=== PATIENT | male | born 2000 | race Caucasian/White ===

== ENCOUNTER 2019-03-30 04:45 | Emergency (ER) | payer BC ==
[2019-03-30] MEDS ORDERED: Ondansetron INJ* 2 MG/ML VIAL IV ONE (05:43)
[2019-03-30] MEDS ORDERED: Morphine 4 MG/ML VIAL (1 ml) 4 MG/ML VIAL IV ONE (05:43)
[2019-03-30 06:07] LABS: ABS Eosinophils 0.1 10^3/ul (0-0.6); ABS Lymphocytes 0.9 10^3/ul (1.0-4.8); ABS Monocytes 1.1 10^3/ul (0-0.8); ABS Neutrophils 7.7 10^3/ul (1.5-7.7); Eosinophil % 1.2 %; Hematocrit 43 % (42-52); Hemoglobin 14.8 g/dL (14.0-18.0); Lymphocyte % 9.4 %; Mean Corpuscular HGB Conc 34 g/dL (31-36); Mean Corpuscular Hemoglobin 29 pg (27-31); Mean Corpuscular Volume 83 fL (80-94); Mean Platelet Volume 7.1 fL (7.4-10.4); Nucleated Red Blood Cells % 0.1; Platelet Count 262 10^3/uL (150-450); Red Blood Count 5.19 10^6 /uL (4.18-5.48); Red Cell Distribution Width 13 % (10-15); White Blood Count 9.9 10^3/uL (3.5-10.8)
[2019-03-30] MEDS ORDERED: Iohexol 300* (CONTRAST) 10 ML SDV IV ONE (06:34)
[2019-03-30 06:38] LABS: Albumin 4.5 g/dL (3.2-5.2); BUN/Creatinine Ratio 12.9 (8-20); C Reactive Protein 19.41 mg/L (<8.01); Calcium 9.2 mg/dL (8.6-10.3); EGFR African American 175.8 (>60); EGFR Non-African American 145.3 (>60); Globulin 2.3 g/dL (2-4); Potassium 4.2 mmol/L (3.5-5.0); Total Bilirubin 0.7 mg/dL (0.2-1.0); Total Protein 6.8 g/dL (6.4-8.9)
--- NOTE | 2019-03-30 07:38 | ED ---
Skin Complaint - HPI Summary HPI Summary: This patient is a 18-year-old otherwise healthy male presenting to the ED with a cyst to the tailbone which has been present 1 week. He denies any fevers, sweats, chills. He was able to be seen by his PCP yesterday who referred him to surgery. However he states since his appointment, the area has grown in size and is now fluctuant. He is endorsing a 9/10 pain, worse with palpation and sitting, better with lying in a prone position. Mother at bedside. Taking ibuprofen and tylenol without much relief. Endorses pain to the bilateral sides of the cyst without extension to the the lumbar spine. Denies hx of cysts , abscesses. - History of Current Complaint Chief Complaint: EDBackInjuryPain Time Seen by Provider: 03/30/19 05:34 Stated Complaint: CYST ON TAILBONE PER PT Hx Obtained From: Patient Onset/Duration: Started Days Ago - 7 days ago Timing: Constant Onset Severity: Severe Current Severity: Severe Pain Intensity: 10 Pain Scale Used: 0-10 Numeric Skin Location: Other: - gluteal cleft abscess Character: Pain, Redness, Raised, Painful Aggravating Symptom(s): Touch, Other: - sitting/pressure Associated Signs & Symptoms: Negative - Allergy/Home Medications Allergies/Adverse Reactions: Allergies Allergy/AdvReac Type Severity Reaction Status Date / Time No Known Allergies Allergy Verified 03/30/19 04:47 PMH/Surg Hx/FS Hx/Imm Hx Previously Healthy: Yes Endocrine/Hematology History: Denies: Hx Diabetes Cardiovascular History: Denies: Hx Hypertension History: Denies: Hx Renal Disease - Immunization History Hx Pertussis Vaccination: No Immunizations Up to Date: Yes Infectious Disease History: No Infectious Disease History: Denies: Traveled Outside the [place] in Last 30 Days - Social History Occupation: Unemployed, Student Lives: With Family Alcohol Use: None Hx Substance Use: No Substance Use Type: Reports: None Hx Tobacco Use: No Smoking Status (MU): Never Smoked Tobacco Review of Systems Constitutional: Negative Negative: Fever, Chills, Fatigue, Skin Diaphoresis Negative: Palpitations, Chest Pain Negative: Shortness Of Breath, Cough Genitourinary: Negative Positive: no symptoms reported, see HPI Negative: Arthralgia, Myalgia Positive: Other - cleft abscess Neurological: Negative All Other Systems Reviewed And Are Negative: Yes Physical Exam Triage Information Reviewed: Yes Vital Signs On Initial Exam: Initial Vitals Temp Pulse Resp BP Pulse Ox 99.3 F 108 18 126/81 98 03/30/19 04:47 03/30/19 04:47 03/30/19 04:47 03/30/19 04:47 03/30/19 04:47 Vital Signs Reviewed: Yes Appearance: Positive: Well-Appearing, Well-Nourished Skin: Positive: Warm, Skin Color Reflects Adequate Perfusion, Other - cruzito cleft abscess measuring 3.5x1cm Head/Face: Positive: Normal Head/Face Inspection Eyes: Positive: EOMI, JULIA, Conjunctiva Clear Neck: Positive: Nontender, No Lymphadenopathy Respiratory/Lung Sounds: Positive: Clear to Auscultation, Breath Sounds Present Cardiovascular: Positive: RRR, Pulses are Symmetrical in both Upper and Lower Extremities Musculoskeletal: Positive: Normal, Strength/ROM Intact Neurological: Positive: Speech Normal Psychiatric: Positive: Affect/Mood Appropriate AVPU Assessment: Alert Procedures - Sedation Patient Received Moderate/Deep Sedation with Procedure: No - Incision and Drainage pilonidal cyst Site: gluteal cruzito cleft Anesthesia: Local Instrument(s): Scalpel Packing: Gauze - iodoform Diagnostics - Vital Signs Vital Signs Temp Pulse Resp BP Pulse Ox 03/30/19 05:52 18 03/30/19 04:47 99.3 F 108 18 126/81 98 - Laboratory Lab Results: Lab Results 03/30/19 03/30/19 Range/Units 06:01 06:01 WBC 9.9 (3.5-10.8) 10^3/uL RBC 5.19 (4.18-5.48) 10^6 /uL Hgb 14.8 (14.0-18.0) g/dL Hct 43 (42-52) % MCV 83 (80-94) fL MCH 29 (27-31) pg MCHC 34 (31-36) g/dL RDW 13 (10-15) % Plt Count 262 (150-450) 10^3/uL MPV 7.1 L (7.4-10.4) fL Neut % (Auto) 78.2 % Lymph % (Auto) 9.4 % [place] % (Auto) 11.0 % Eos % (Auto) 1.2 % Baso % (Auto) 0.2 % Absolute Neuts (auto) 7.7 (1.5-7.7) 10^3/ul Absolute Lymphs (auto) 0.9 L (1.0-4.8) 10^3/ul Absolute Monos (auto) 1.1 H (0-0.8) 10^3/ul Absolute Eos (auto) 0.1 (0-0.6) 10^3/ul Absolute Basos (auto) 0.0 (0-0.2) 10^3/ul Absolute Nucleated RBC 0.0 10^3/ul Nucleated RBC % 0.1 Sodium 136 (135-145) mmol/L Potassium 4.2 (3.5-5.0) mmol/L Chloride 104 (101-111) mmol/L Carbon Dioxide 24 (22-32) mmol/L Anion Gap 8 (2-11) mmol/L BUN 9 (6-24) mg/dL Creatinine 0.70 (0.67-1.17) mg/dL Est GFR ( Amer) 175.8 (>60) Est GFR (Non-Af Amer) 145.3 (>60) BUN/Creatinine Ratio 12.9 (8-20) Glucose 102 H (70-100) mg/dL Calcium 9.2 (8.6-10.3) mg/dL Total Bilirubin 0.70 (0.2-1.0) mg/dL AST 26 (13-39) U/L ALT 24 (7-52) U/L Alkaline Phosphatase 66 (34-104) U/L C-Reactive Protein 19.41 H (<8.01) mg/L Total Protein 6.8 (6.4-8.9) g/dL Albumin 4.5 (3.2-5.2) g/dL Globulin 2.3 (2-4) g/dL Albumin/Globulin Ratio 2.0 (1-3) Result Diagrams: 03/30/19 06:01 03/30/19 06:01 Lab Statement: Any lab studies that have been ordered have been reviewed, and results considered in the medical decision making process. Course/Dx - Course Course Of Treatment: During his course of treatment, the patient is evaluated for pilonidal cyst. On physical examination, there is a slightly fluctuant 3.5cm (linear) x 1.0cm area to the cleft. NO evidence of a midline skin pit. No drainage from the area. No evidence of perianal abscess or other follicular abscesses. Gluteal cleft hair surrounding. No evidence of fevers, malaise, sweats or chills. CT Pelvis with IV contrast: Flu collection with peripheral rim enhancement present in the midline just deep to the superior gluteal fold consistent with a pilonidal cyst or abscess. Small hypodense area posterior to the anus is noted. Labs unremarkable. Pt afebrile and VS stable. I and D procedure: Adequate anesthesia was achieved with 75mcg fentanyl. The area was prepped with povidone-iodine solution in semi-sterile procedure fashion. Local anesthetic with 3ml 1% lidocaine injected in and around wound. 1.2cm incision made linear to the most superior part of the abscess using 11 blade. Culture obtained. Approximately 5ccs purulent malodorous drained from wound. Hemostat used to probe. Small amount of left sided tunneling without R sided involvement. Irrigation of the wound with NS. Packed abscess cavity with 3cm iodoform dressing. Gauze wrapped and tegaderm applied. Pt tolerated procedure well. Assessment/Plan: Pt will be seen by Dr. Morales tomorrow at 8:45am. - Differential Diagnoses - Skin Complaint Differential Diagnoses: Other - pilonidal cyst, abscess, fluid collection, follicular abscess - Diagnoses Provider Diagnoses: Pilonidal cyst with abscess Discharge ED - Sign-Out/Discharge Documenting (check all that apply): Patient Departure - Discharge Plan Condition: Stable Disposition: HOME Prescriptions: Hydrocodone/Acetamin 10/325(NF [[place] 10/325 (NF)] 1 tab PO Q6H #16 tab MDD 4 Sulfamethox/Trimethoprim DS* [Bactrim DS 800/160 TAB*] 1 tab PO BID #14 tab Patient Education Materials: Pilonidal Cyst (ED), Pilonidal Cyst Excision (DC) Referrals: No Primary Care Phys,NOPCP [Primary Care Provider] - Additional Instructions: Bactrim twice daily x 7 days Hydrocodone four times daily as needed for pain Mar 31 8:45am to see Dr. Morales Keep the dressing applied If the area continues to drain through the gauze, replace the gauze as shown - Billing Disposition and Condition Condition: STABLE Disposition: Home
[2019-03-30] MEDS ORDERED: fentaNYL* 50 MCG/ML 2 ML VIAL (100 MCG VIAL) IV SLOW PU ONE (07:53)
[2019-03-30 09:11] VITALS: BP 122/80
== END 2019-03-30 08:41 | disposition home or self-care (01) ==
LOC: ED 04:45
DX: L05.01 Pilonidal cyst with abscess (principal)
CPT/HCPCS: 10080; 36415; 72193; 80053; 85025; 86140; 87070; 87205; 87640; 87641; 96374; 96375; 99282; J2270; J2405; J3010; Q9967